=== PATIENT | female | born 1985 | race Caucasian/White ===

== ENCOUNTER 2017-05-02 14:32 | Emergency (ER) | payer MEDICAID ==
[2017-05-02 14:57] VITALS: BP 150/84
--- NOTE | 2017-05-02 15:16 | ER Document Report ---
HPI - HPI Patient complains to provider of: right ankle pain Onset: Yesterday Onset/Duration: Sudden Quality of pain: Achy Severity: Mild Pain Level: 2 Context: Patient states she feels like she may have torn a ligament or tendon but denies any known injury to right ankle. States she feels like something is crawling under the skin, like her veins are congested. Associated Symptoms: None Exacerbated by: Movement Relieved by: Remaining still Similar symptoms previously: Yes Recently seen / treated by doctor: No - ROS ROS below otherwise negative: Yes Systems Reviewed and Negative: Yes All other systems reviewed and negative - CONSTITUTIONAL Constitutional: DENIES: Fever - EENT EENT: DENIES: Congestion - NEURO Neurology: DENIES: Headache - CARDIOVASCULAR Cardiovascular: DENIES: Chest pain - RESPIRATORY Respiratory: DENIES: Trouble Breathing - GASTROINTESTINAL Gastrointestinal: DENIES: Abdominal Pain - REPRODUCTIVE Reproductive: DENIES: : - MUSCULOSKELETAL Musculoskeletal: REPORTS: Extremity pain - right ankle - DERM Skin Color: Normal Skin Problems: None Past Medical History - General Information source: Patient - Social History Smoking Status: Never Smoker Frequency of alcohol use: None Drug Abuse: None Lives with: Family Family History: Reviewed & Not Pertinent Patient has suicidal ideation: No Patient has homicidal ideation: No - Past Medical History Cardiac Medical History: Reports: Hx Hypertension GI Medical History: Reports: Hx Gastroesophageal Reflux Disease Skin Medical History: Reports Hx Psoriasis Psychiatric Medical History: Reports: Hx Bipolar Disorder Past Surgical History: Reports: Hx Hysterectomy, Hx Tubal Ligation - Immunizations Hx Diphtheria, Pertussis, Tetanus Vaccination: Yes Vertical Provider Document - CONSTITUTIONAL Agree With Documented VS: Yes Exam Limitations: No Limitations General Appearance: WD/WN, No Apparent Distress - INFECTION CONTROL TRAVEL OUTSIDE OF THE [place] IN LAST 30 DAYS: No - HEENT HEENT: Atraumatic, Normocephalic - RESPIRATORY Respiratory: Breath Sounds Normal, No Respiratory Distress O2 Sat by Pulse Oximetry: 96 - CARDIOVASCULAR Cardiovascular: Regular Rate, Regular Rhythm - MUSCULOSKELETAL/EXTREMETIES Musculoskeletal/Extremeties: MAEW, Tender - anterior ankle over talus, No Edema. negative: Eccymosis - NEURO Level of Consciousness: Awake, Alert, Appropriate - DERM Integumentary: Warm, Dry, No Rash Course - Re-evaluation Re-evalutation: Pt denies application of valorie wrap at discharge. States she has "several of them at home already" - Vital Signs Vital signs: Temp Pulse Resp BP Pulse Ox 99.5 F 107 H 150/84 H 96 05/02/17 14:54 05/02/17 14:54 05/02/17 14:54 05/02/17 14:54 Discharge - Discharge Clinical Impression: Right ankle pain Qualifiers: Chronicity: unspecified Qualified Code(s): M25.571 - Pain in right ankle and joints of right foot Condition: Good Disposition: HOME, SELF-CARE Additional Instructions: OTC ibuprofen as needed for discomfort X-ray of ankle was normal, but did show a heel spur Follow-up with your primary care physician for further evaluation if ankle is still bothering you in 2-3 days.
--- NOTE | 2017-05-02 15:56 | RADIOLOGY REPORT (SQ) ---
EXAM DESCRIPTION: ANKLE RIGHT COMPLETE COMPLETED DATE/TIME: 05/02/2017 3:47 pm REASON FOR STUDY: pain COMPARISON: None. NUMBER OF VIEWS: Three views. TECHNIQUE: AP, lateral, and oblique radiographic images acquired of the right ankle. LIMITATIONS: None. FINDINGS: MINERALIZATION: Normal. BONES: No fracture dislocation. Prominent calcaneal spurs. JOINTS: No effusions. SOFT TISSUES: No soft tissue swelling. No foreign body. OTHER: No other significant finding. IMPRESSION: Calcaneal spurs with no acute abnormality of the ankle. TECHNICAL DOCUMENTATION: JOB ID: [id number] [employer]- All Rights Reserved
== END 2017-05-02 16:18 | disposition home or self-care (01) ==
LOC: ER 14:32
DX: K62.89 Other specified diseases of anus and rectum (principal); I10 Essential (primary) hypertension; Z90.710 Acquired absence of both cervix and uterus
CPT/HCPCS: 99283

== ENCOUNTER 2019-03-23 22:17 | Emergency (ER) | payer MEDICAID ==
[2019-03-23 22:37] VITALS: BP 147/88
[2019-03-23] MEDS ORDERED: CLINDAMYCIN HCL 150 MG CAPSULE PO ONE (23:05)
[2019-03-23] MEDS ORDERED: LIDOCAINE 1%/EPINEPHRINE INJ 20 ML VIAL INJ ONE (23:05)
--- NOTE | 2019-03-23 23:08 | ER Document Report ---
ED General - General Chief Complaint: Abscess Stated Complaint: CYST PAIN ON BACK Time Seen by Provider: 03/23/19 22:59 Primary Care Provider: MEENAKSHI LAGOS MD [ACTIVE STAFF] - Follow up in 3-5 days Notes: Patient is a 34-year-old female presents with complaint of a pilonidal cyst. Patient denies any fevers. No vomiting. She has had this several times in the past. She is having incised before. She does have history of psoriasis. She does take medications for this. She denies any fevers. No vomiting. No other complaints at this time. She first noticed the swelling 3 days ago. TRAVEL OUTSIDE OF THE [place] IN LAST 30 DAYS: No - Related Data Allergies/Adverse Reactions: fentanyl [Fentanyl] Allergy (Severe, Verified 05/02/17 14:53) Anaphylaxis Past Medical History - Social History Smoking Status: Never Smoker Frequency of alcohol use: None Drug Abuse: None Family History: Reviewed & Not Pertinent - Past Medical History Cardiac Medical History: Reports: Hx Hypertension Denies: Hx Coronary Artery Disease, Hx Heart Attack Pulmonary Medical History: Denies: Hx Asthma, Hx Bronchitis, Hx COPD, Hx Pneumonia Neurological Medical History: Denies: Hx Cerebrovascular Accident, Hx Seizures Renal/ Medical History: Denies: Hx Peritoneal Dialysis GI Medical History: Reports: Hx Gastroesophageal Reflux Disease Musculoskeletal Medical History: Denies Hx Arthritis Skin Medical History: Reports Hx Psoriasis Psychiatric Medical History: Reports: Hx Bipolar Disorder Past Surgical History: Reports: Hx Hysterectomy, Hx Tubal Ligation - Immunizations Hx Diphtheria, Pertussis, Tetanus Vaccination: Yes Review of Systems - Review of Systems Notes: My Normal Review Basic REVIEW OF SYSTEMS: CONSTITUTIONAL : Denies fever, chills, or sweats. GASTROINTESTINAL: Denies abdominal pain. Denies nausea, vomiting, or diarrhea. MUSCULOSKELETAL: Denies neck or back pain or joint pain or swelling. SKIN: Pilonidal cyst. History of psoriasis HEMATOLOGIC : Denies easy bruising or bleeding. NEUROLOGICAL: Denies altered mental status or loss of consciousness ALL OTHER SYSTEMS REVIEWED AND NEGATIVE. Physical Exam - Vital signs Vitals: Temp Pulse Resp BP Pulse Ox 99.4 F 109 H 20 147/88 H 96 03/23/19 22:36 03/23/19 22:36 03/23/19 22:36 03/23/19 22:36 03/23/19 22:36 - Notes Notes: General Appearance: Well nourished, alert, cooperative, no acute distress, mild obvious discomfort. Vitals: reviewed, See vital signs table. Eyes: PERRL, EOMI, Conjuctiva clear Abdomen: Normal BS, soft, No rigidity, No abdominal tenderness, No guarding, no rebound, no abdominal masses, no organomegaly Extremities: strength 5/5 in all extremities, good pulses in all extremities, no swelling or tenderness in the extremities, no edema. Skin: Patient has what appears to be a pilonidal abscess at the top of the gluteal cleft. The area of fluctuance is 3 cm. Neuro: speech clear, oriented x 3, normal affect, responds appropriately to questions. Course - Re-evaluation Re-evalutation: 03/25/19 06:55 Abscess was incised and is and drained. Patient all procedure well. Patient informed to return to ER immediately if there is recurrent swelling, spreading redness, or she feels unwell. Being that patient has had multiple abscesses in the same location I have referred her to surgery clinic so that they can evaluate her determine if she needs excision of the affected area. Patient agrees with plan will be discharged home. Dictation of this chart was performed using voice recognition software; therefore, there may be some unintended grammatical errors. - Vital Signs Vital signs: Temp Pulse Resp BP Pulse Ox 99.4 F 109 H 20 147/88 H 96 03/23/19 22:36 03/23/19 22:36 03/23/19 22:36 03/23/19 22:36 03/23/19 22:36 Procedures - Incision and Drainage pilonidal Type: Simple Anesthetic type: 1% Lidocaine w/epi mL's of anesthetic: 5 Blade size: 11 I&D procedure: Chlorprep applied Incision Method: Incision made by scalpel Amount/type of drainage: moderate amount of purulent drainage Discharge - Discharge Clinical Impression: Pilonidal abscess Condition: Good Disposition: HOME, SELF-CARE Additional Instructions: Your abscess was incised and drained. I placed a small amount of packing. This will eventually come on its own. If it does not come out on its own in 3 days then either us or your primary care doctor can remove it. You can follow-up with us or your primary care doctor in 3 days for reevaluation. Please take antibiotics as prescribed. Please return to ER if you have any spreading redness or swelling. I will refer you to the surgery clinic. Please follow-up with them in regards to you having these recurrently and discuss with them whether or not excision of the affected tissue would be of benefit. The phone number to the surgery clinic is under the name, Dr. Lagos, on your paperwork. Prescriptions: RX: Clindamycin HCl [Cleocin 150 mg Capsule] 300 mg PO Q6 #56 capsule Referrals: MEENAKSHI LAGOS MD [ACTIVE STAFF] - Follow up in 3-5 days
== END 2019-03-24 01:05 | disposition home or self-care (01) ==
LOC: ER 22:17
DX: L05.01 Pilonidal cyst with abscess (principal); I10 Essential (primary) hypertension; Z90.710 Acquired absence of both cervix and uterus
CPT/HCPCS: 99283; 10080; A6266; J3490 ×2

== ENCOUNTER → 2020-02-18 | Outpatient (CLI) | payer MEDICAID ==
--- NOTE | 2020-02-18 12:47 | RADIOLOGY REPORT (SQ) ---
EXAM DESCRIPTION: KNEE LEFT 3 VIEWS IMAGES COMPLETED DATE/TIME: 02/18/2020 12:05 pm REASON FOR STUDY: PAIN IN LEFT KNEE M25.562 PAIN IN LEFT KNEE COMPARISON: None. NUMBER OF VIEWS: Three views. TECHNIQUE: AP, lateral, and sunrise patella radiographic images acquired of the left knee. LIMITATIONS: None. FINDINGS: MINERALIZATION: Normal. BONES: No acute fracture or dislocation. No worrisome bone lesions. No significant osteophytes. JOINT: No effusion. No chondrocalcinosis. OTHER: No other significant finding. IMPRESSION: NEGATIVE STUDY OF THE LEFT KNEE. NO EXPLANATION FOR PAIN. TECHNICAL DOCUMENTATION: JOB ID: [id number] [employer]- All Rights Reserved Reading location - IP/workstation name: [email or web address]
== END ==
LOC: RAD 11:40
PROVIDERS: ATTEND Nurse Practitioner Family
DX: M25.562 Pain in left knee (principal)